=== PATIENT | male | born 2005 | race Caucasian/White ===

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

== ENCOUNTER 2023-09-21 00:41 | Emergency (ER) | payer SELFPAY ==
[2023-09-21 01:24] LABS: BASOPHILS ABSOLUTE AUTO 0.1 K/mm3 (0.0-0.3); BASOPHILS PERCENT AUTO 0.8 % (0.0-1.0); EOSINOPHILS ABSOLUTE AUTO 0.1 K/mm3 (0.0-0.7); HEMATOCRIT 45.4 % (42.0-52.0); IMMATURE GRAN ABSOLUTE AUTO 0.05 K/mm3 (0.00-0.05); IMMATURE GRAN PERCENT AUTO 0.6 % (0.0-0.4); LYMPHOCYTES ABSOLUTE AUTO 2.8 K/mm3 (2.0-8.8); LYMPHOCYTES PERCENT AUTO 30.8 % (50.0-65.0); MEAN CORPUSCULAR HGB CONC 35.2 g/dl (32.0-36.0); MEAN PLATELET VOLUME 9.3 fl (9.4-12.4); MONOCYTES ABSOLUTE AUTO 0.5 K/mm3 (0.1-1.4); MONOCYTES PERCENT AUTO 5.2 % (2.0-10.0); NEUTROPHILS ABSOLUTE AUTO 5.5 K/mm3 (1.5-8.5); NEUTROPHILS PERCENT AUTO 61.6 % (35.0-45.0); PLATELET COUNT,PLT 300 K/mm3 (150-400); RED BLOOD CELL COUNT 5.34 M/mm3 (4.52-5.90); WHITE BLOOD CELL COUNT,WBC 8.99 K/mm3 (4.5-13.5)
[2023-09-21] MEDS: fentaNYL 100 MCG/2 ML SDV IVPUSH ONE (01:32)
[2023-09-21 01:42] LABS: INR 0.98; PROTHROMBIN TIME 10.5 SECONDS (9.7-12.0)
[2023-09-21 01:43] LABS: PTT,PARTIAL THROMBOPLSTIN TIME 27.5 SECONDS (21.7-31.4)
[2023-09-21 01:47] LABS: A/G RATIO 1.4 (1-2); ALBUMIN 4.6 g/dl (3.4-5.0); ANION GAP 18.6 (5-15); BILIRUBIN TOTAL 0.2 mg/dL (0.2-1.0); EST CRCL DRUG DOSING (CG) 117.09 mL/min; ETHANOL BLOOD MEDICAL 0.32 gm% (0.00); POTASSIUM,K 3.6 mEq/L (3.5-5.1)
[2023-09-21] MEDS: Iopamidol 755 Mg/ML 100 ML Bottle IVPUSH ONE (02:11)
[2023-09-21] MEDS: Sodium Chloride 0.9% 10 ML Syringe FLUSH ONE (02:11)
[2023-09-21] MEDS: Lidocaine 1% 20 ML MDV INJECT ONE (03:50)
[2023-09-21] MEDS: Morphine 4 MG/ML Syringe IVPUSH ONE (03:53)
== END 2023-09-21 04:03 | disposition home or self-care (01) ==
LOC: JD.ED 00:41
DX: S62.002A Unspecified fracture of navicular [scaphoid] bone of left wrist, initial encounter for closed fracture (principal); Z91.018 Allergy to other foods; W01.0XXA Fall on same level from slipping, tripping and stumbling without subsequent striking against object, initial encounter
CPT/HCPCS: 29125; 36415; 70450; 70486; 71260; 72125; 73110; 73130; 74177; 80053; 80307; 85025; 85610; 85730; 86850; 86900; 86901; 96374; 96375; 99284; J2270; J3010; J3490; Q9967